=== PATIENT | female | born 1960 | race Caucasian/White ===

== ENCOUNTER → 2019-01-25 | Outpatient (REF) | payer BC | LOC: M LAB LCGH 14:39 | PROVIDERS: ATTEND Surgery | DX: K63.5 Polyp of colon (principal) ==

== ENCOUNTER → 2022-12-28 | Outpatient (REF) | payer BC | LOC: M SFHCDERM 17:23 | PROVIDERS: ATTEND Nurse Practitioner Family | DX: D48.9 Neoplasm of uncertain behavior, unspecified (principal); C44.319 Basal cell carcinoma of skin of other parts of face ==

== ENCOUNTER → 2023-05-15 | Outpatient (REF) | payer OTHER | LOC: M SFHCDERM 14:06 | PROVIDERS: ATTEND Nurse Practitioner Family | DX: C44.629 Squamous cell carcinoma of skin of left upper limb, including shoulder (principal); D04.62 Carcinoma in situ of skin of left upper limb, including shoulder ==

== ENCOUNTER → 2023-08-22 | Outpatient (REF) | payer OTHER, BC | LOC: M SFHCDERM 13:53 | PROVIDERS: ATTEND Physician Assistant | DX: C44.91 Basal cell carcinoma of skin, unspecified (principal) ==